=== PATIENT | female | born 1990 | race Asian ===

== ENCOUNTER 2017-04-15 11:40 | Emergency (ER) | payer OTHER ==
[2017-04-15 11:45] VITALS: O2SAT 96
[2017-04-15] MEDS ORDERED: LET GEL TOPICAL 1 EA SYR TP ONE ×2 (12:00→12:02)
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
[2017-04-15 13:07] VITALS: BP 118/79; PULSE 71; RESP 18; TEMP 98.2
== END 2017-04-15 13:19 | disposition home or self-care (01) ==
DX: S52.501A Unspecified fracture of the lower end of right radius, initial encounter for closed fracture (principal); S50.311A Abrasion of right elbow, initial encounter; V19.40XA Pedal cycle driver injured in collision with unspecified motor vehicles in traffic accident, initial encounter; Y92.410 Unspecified street and highway as the place of occurrence of the external cause; Y99.8 Other external cause status; Y93.55 Activity, bike riding
CPT/HCPCS: A4565